=== PATIENT | male | born 1950 | race African-American/Black ===

== ENCOUNTER 2017-04-03 11:18 | Outpatient (CLI) | payer MEDICARE ==
[2017-04-03 12:26] LABS: Bilirubin Negative (Negative); Blood, Urine Negative (Negative); Clarity Clear (Clear); Glucose, Urine (Dipstick) Negative (Negative); Leukocyte Negative (Negative); Nitrite Negative (Negative); Protein, Urine (Dipstick) Negative (Neg-Trace); Specific Gravity, Urine 1.015 (1.005-1.030); pH, Urine 5.5 (5.0-9.0)
[2017-04-03 12:56] LABS: ALT (SGPT) 18 U/L (8-55); AST (SGOT) 28 U/L (5-34); Albumin 3.6 g/dL (3.4-4.8); Alkaline Phosphatase 139 U/L (40-150); Anion Gap 14 mmol/L (10-20); BUN (Urea Nitrogen) 12 mg/dL (8.4-25.7); Bilirubin, Total 0.6 mg/dL (0.2-1.2); Calc. Creatinine Clearance 0 mL/min (70-130); Calcium 8.3 mg/dL (7.8-10.44); Carbon Dioxide 26 mmol/L (23-31); Chloride 101 mmol/L (98-107); Estimated GFR-MDRD 77; Globulin 3.2 g/dL (2.4-3.5); Glucose 109 mg/dL (80-115); Protein, Total 6.8 g/dL (5.8-8.1); Sodium 137 mmol/L (136-145)
[2017-04-03 13:31] LABS: #Basophils 0.1 thou/uL (0.0-0.2); #Eosinphils 0.1 thou/uL (0.0-0.7); #Lymphocytes 1.1 thou/uL (1.20-3.40); #Monocytes 0.6 thou/uL (0.11-0.59); #Neutrophils 4.3 thou/uL (1.40-6.50); %Basophils 1.1 % (0.0-1.0); %Eosinophils 1.2 % (0.0-10.0); %Lymphocytes 17.5 % (21.0-51.0); %Monocytes 9.3 % (0.0-10.0); %Neutrophils 70.9 % (42.0-75.0); Hemoglobin 15.2 g/dL (14.0-18.0); Mean Corpuscular HGB CONC 31.9 g/dL (32.0-36.0); Mean Corpuscular Hemoglobin 27.5 pg (27.0-31.0); Mean Corpuscular Volume 86.1 fl (80.0-94.0); Mean Platelet Volume 8.3 fL (7.4-10.4); Platelet Count 108 thou/uL (130-400); RBC Distribution Width 14.1 % (11.5-14.5); Red Blood Cell (RBC) Count 5.52 mill/uL (4.70-6.10)
[2017-04-03 13:32] LABS: PLT Morphology Comment Appears Decreased
== END 2017-04-03 11:19 | disposition home or self-care (01) ==
LOC: NAVSJIPCSP 11:18
PROVIDERS: ATTEND Internal Medicine
DX: B19.20 Unspecified viral hepatitis C without hepatic coma (principal); I10 Essential (primary) hypertension
CPT/HCPCS: 36415; 80053; 81003; 85025

== ENCOUNTER 2017-06-10 09:08 | Outpatient (CLI) | payer MEDICARE ==
[2017-06-10 13:51] LABS: Anion Gap 15 mmol/L (10-20); BUN (Urea Nitrogen) 19 mg/dL (8.4-25.7); Calc. Creatinine Clearance 0 mL/min (70-130); Calcium 8.8 mg/dL (7.8-10.44); Carbon Dioxide 29 mmol/L (23-31); Chloride 102 mmol/L (98-107); Estimated GFR-MDRD 75; Glucose 93 mg/dL (80-115); Potassium 3.7 mmol/L (3.5-5.1); Sodium 142 mmol/L (136-145)
== END 2017-06-10 09:09 | disposition home or self-care (01) ==
LOC: NAVSJIPCSP 09:08
PROVIDERS: ATTEND Internal Medicine
DX: R97.20 Elevated prostate specific antigen [PSA] (principal)
CPT/HCPCS: 36415; 80048; G0103

== ENCOUNTER 2017-06-29 22:18 | Emergency (ER) | payer MEDICARE ==
[2017-06-29] MEDS ORDERED: Fentanyl 100 MCG/2 ML VIAL ONE ×2 (22:28→23:26)
[2017-06-29 22:57] LABS: #Basophils 0.1 thou/uL (0.0-0.2); #Lymphocytes 1.5 thou/uL (1.20-3.40); #Monocytes 0.5 thou/uL (0.11-0.59); #Neutrophils 3.2 thou/uL (1.40-6.50); %Basophils 1.4 % (0.0-1.0); %Eosinophils 0.9 % (0.0-10.0); %Neutrophils 59.7 % (42.0-75.0); Hemoglobin 13.4 g/dL (14.0-18.0); Mean Corpuscular HGB CONC 33.7 g/dL (32.0-36.0); Mean Corpuscular Hemoglobin 28.4 pg (27.0-31.0); Mean Corpuscular Volume 84.4 fl (80.0-94.0); Mean Platelet Volume 8.4 fL (7.4-10.4); Platelet Count 89 thou/uL (130-400); RBC Distribution Width 13.9 % (11.5-14.5); Red Blood Cell (RBC) Count 4.72 mill/uL (4.70-6.10); White Blood Cell (WBC) Count 5.3 thou/uL (4.8-10.8)
[2017-06-29 23:02] LABS: ALT (SGPT) 33 U/L (8-55); AST (SGOT) 34 U/L (5-34); Albumin 3.6 g/dL (3.4-4.8); Alkaline Phosphatase 138 U/L (40-150); Anion Gap 14 mmol/L (10-20); BUN (Urea Nitrogen) 15 mg/dL (8.4-25.7); Bilirubin, Total 0.6 mg/dL (0.2-1.2); Calc. Creatinine Clearance 0 mL/min (70-130); Calcium 8.2 mg/dL (7.8-10.44); Carbon Dioxide 23 mmol/L (23-31); Chloride 105 mmol/L (98-107); Estimated GFR-MDRD 83; Globulin 3.6 g/dL (2.4-3.5); Potassium 4.1 mmol/L (3.5-5.1); Protein, Total 7.2 g/dL (5.8-8.1); Sodium 138 mmol/L (136-145)
[2017-06-29] MEDS ORDERED: Adacel (T-DAP) 0.5 ML VIAL ONE (23:12)
[2017-06-29 23:19] LABS: Glucose 103 mg/dL (80-115)
[2017-06-29] MEDS ORDERED: Ciprofloxacin Lactate/D5W 400 mg/200 ml Premix ONE (23:25)
[2017-06-29] MEDS ORDERED: Sodium Chloride 0.9% 0 ML ONE (23:25)
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
[2017-06-30] MEDS ORDERED: Fentanyl 100 MCG/2 ML VIAL ONE (01:02)
== END 2017-06-30 01:45 | disposition short-term general hospital (02) ==
LOC: NAV ERS 22:18
DX: S92.001A Unspecified fracture of right calcaneus, initial encounter for closed fracture (principal); D69.6 Thrombocytopenia, unspecified; I10 Essential (primary) hypertension; Z79.899 Other long term (current) drug therapy; W32.0XXA Accidental handgun discharge, initial encounter
CPT/HCPCS: 36415; 80053; 85025; 90471; 90715; 96365; 96375; 96376; J0744; J3010; J7050

== ENCOUNTER 2017-10-15 09:49 | Outpatient (CLI) | payer MEDICARE, MEDICAID ==
--- NOTE | 2017-10-15 14:38 | CT ---
CT CHEST PERFORMED WITHOUT CONTRAST ENHANCEMENT: HISTORY: Followup of right basilar lung nodule. COMPARISON: CT abdomen and pelvis from 09/04/2017. FINDINGS: There are some areas of air trapping and blebs, suggesting some COPD type changes. There is a noncal cified left upper lobe pulmonary nodule that measures 4 to 5 mm. There are two areas of nodularity i n the right base, one of which is pleural-based and is slightly more posterior in location, within th e right posterior sulcus. This is a fairly ill defined area, measuring approximately 1.5 cm in size. There is a second area of nodularity, which is closer to the posterior cardiophrenic angle region, best seen on axial image 48 and coronal image 103. It measures approximately 8 mm in size. There is some interstitial change that is in between these two areas. They are not decreased in size, as com pared to the prior study. I do not appreciate any definite mediastinal or hilar adenopathy on this noncontrast exam. The splee n is noted to be enlarged. Cirrhotic appearing changes of the liver are present. IMPRESSION: 1. Chronic obstructive pulmonary disease type changes. 2. There is a 4 mm left upper lobe pulmonary nodule seen on axial image 19, which is noncalcified. There is a second pleural based nodularity along the major fissure on the left, which measures 2 to 3 mm, and probably represents a small, pleural based node. It is on axial image 37 and coronal image 74. 3. There are two areas of ill defined nodularity within the right lower lobe, as discussed above. T here is some intervening interstitial change associated with these. These are essentially stable as compared to the 09/04/2015 exam. 4. Cirrhotic changes of the liver and splenomegaly. 5. The above findings warrant followup, and I would suggest a short-term, three-month follow-up exam ination. This will investigate both the left upper lobe pulmonary nodule, as well as the ill defined areas of nodularity in the right lower lobe. If the patient has symptoms that would suggest infecti on, an antibiotic course would be suggested, as the changes in the right base could potentially be in fectious in nature. POS: [facility]
== END 2017-10-15 09:50 | disposition home or self-care (01) ==
LOC: NAV CT 09:49
PROVIDERS: ATTEND Internal Medicine
DX: R22.2 Localized swelling, mass and lump, trunk (principal); R91.8 Other nonspecific abnormal finding of lung field
CPT/HCPCS: 71250

== ENCOUNTER 2018-02-09 10:46 | Emergency (ER) | payer MEDICARE, MEDICAID ==
[2018-02-09 11:32] LABS: Bilirubin Negative (Negative); Blood, Urine Trace (Negative); Clarity Clear (Clear); Glucose, Urine (Dipstick) Negative (Negative); Leukocyte Negative (Negative); Nitrite Negative (Negative); Protein, Urine (Dipstick) Negative (Neg-Trace)
[2018-02-09 11:43] LABS: #Basophils 0.1 thou/uL (0.0-0.2); #Lymphocytes 0.8 thou/uL (1.20-3.40); #Monocytes 0.6 thou/uL (0.11-0.59); #Neutrophils 6.6 thou/uL (1.40-6.50); %Basophils 0.8 % (0.0-1.0); %Eosinophils 0.2 % (0.0-10.0); %Lymphocytes 10.1 % (21.0-51.0); %Monocytes 7.5 % (0.0-10.0); %Neutrophils 81.4 % (42.0-75.0); Hemoglobin 13.5 g/dL (14.0-18.0); Mean Corpuscular HGB CONC 32.9 g/dL (32.0-36.0); Mean Corpuscular Hemoglobin 27.3 pg (27.0-31.0); Mean Platelet Volume 9.8 fL (7.4-10.4); Platelet Count 75 thou/uL (130-400); RBC Distribution Width 12.3 % (11.5-14.5); Red Blood Cell (RBC) Count 4.93 mill/uL (4.70-6.10); White Blood Cell (WBC) Count 8.1 thou/uL (4.8-10.8)
[2018-02-09 11:49] LABS: Bacteria/HPF Rare-Few HPF (None Seen); Other Microscopic Description NO; RBC/HPF 0-3 HPF (0-3); Squamous Epithelial None Seen HPF (0-3); WBC/HPF None Seen HPF (0-3)
[2018-02-09 11:52] LABS: ALT (SGPT) 37 U/L (8-55); AST (SGOT) 41 U/L (5-34); Albumin 3.6 g/dL (3.4-4.8); Alkaline Phosphatase 118 U/L (40-150); Anion Gap 13 mmol/L (10-20); BUN (Urea Nitrogen) 16 mg/dL (8.4-25.7); Bilirubin, Total 1.2 mg/dL (0.2-1.2); Calc. Creatinine Clearance 0 mL/min (70-130); Calcium 8.5 mg/dL (7.8-10.44); Carbon Dioxide 26 mmol/L (23-31); Chloride 102 mmol/L (98-107); Estimated GFR-MDRD 79; Globulin 3.7 g/dL (2.4-3.5); Glucose 164 mg/dL (80-115); Potassium 3.7 mmol/L (3.5-5.1); Protein, Total 7.3 g/dL (5.8-8.1); Sodium 137 mmol/L (136-145)
--- NOTE | 2018-02-09 12:10 | RAD ---
PA AND LATERAL VIEWS CHEST: Date: 02/09/18 HISTORY: Fever, cough, and chills. FINDINGS: Comparison made with exam of 09/15/16. The heart size is normal. The aorta is tortuous. The lungs are well expanded without focal areas of c onsolidation, pneumothoraces, or pleural effusions. No acute osseous abnormalities are seen. IMPRESSION: No radiographic evidence of acute cardiopulmonary process. POS: [facility]
== END 2018-02-09 12:35 | disposition home or self-care (01) ==
LOC: NAV ERS 10:46
DX: R05 Cough (principal); M79.1 Myalgia; D64.9 Anemia, unspecified; I10 Essential (primary) hypertension; Z79.891 Long term (current) use of opiate analgesic; Z79.899 Other long term (current) drug therapy
CPT/HCPCS: 71046; 80053; 81003; 81015; 85025

== ENCOUNTER 2018-03-16 08:11 | Outpatient (CLI) | payer MEDICARE, MEDICAID ==
--- NOTE | 2018-03-16 11:03 | ULT ---
ULTRASOUND ABDOMEN LIMITED: (RIGHT UPPER QUADRANT) DATE: 03-16-18 HISTORY: 67-year-old male with hepatitis C virus. FINDINGS: Gallbladder: Surgically absent. Common duct: Severely dilated to 20 mm. Liver: Nodular margins. Coarse echotexture. Diffuse intrahepatic biliary ductal dilation. Pancreas: Nonspecific sonographic appearance of visualized portions. Right kidney: No hydronephrosis. IMPRESSION: 1. Cirrhosis of the liver. 2. Moderate to severe dilation of the entire biliary tree. Dilation was demonstrated on previous nonc ontrast CT of 09-04-17. Consider ERCP to rule out obstructing ampullary lesion. 3. Status post cholecystectomy. BALDEV Davila POS: [facility]
== END 2018-03-16 08:12 | disposition home or self-care (01) ==
LOC: NAV ULT 08:11
PROVIDERS: ATTEND Internal Medicine
DX: B19.20 Unspecified viral hepatitis C without hepatic coma (principal); K74.60 Unspecified cirrhosis of liver; K83.8 Other specified diseases of biliary tract; Z90.49 Acquired absence of other specified parts of digestive tract
CPT/HCPCS: 76705

== ENCOUNTER 2018-04-16 07:58 | Outpatient (CLI) | payer MEDICARE, MEDICAID ==
--- NOTE | 2018-04-16 09:58 | CT ---
CT OF THE THORAX WITHOUT IV CONTRAST: INDICATION: Fall. Pulmonary nodule. COMPARISON: Prior study dated 10/15/[address] of the chest, abdomen, and pelvis dated 06/16/14. FINDINGS: There is moderate scattered central lobular and paraseptal emphysema. There is a stable 4.7 mm pulmonary nodule left upper lobe. This has been stable since 2014 and is be nign. There are new areas of peripheral nodular airspace consolidation within the posterior medial and post erior lateral segment of the right lower lobe. There was some patchy opacity seen within the postero medial segment of the right middle lobe. There is a small calcified granuloma within the superior li ngula. No pleural effusion is evident. There is a stable 1.4 cm precarinal lymph node. There are m ild coronary artery calcifications. The spleen is enlarged measuring 6 cm. There is cirrhotic morph ology of the liver. The gallbladder is surgically absent. There are mild splenic varicosities. There is scattered degenerative and osteoarthritic change. IMPRESSION: 1. New areas of peripheral nodular airspace consolidation can be seen with bronchopneumonia. Entity such as bronchoalveolar adenocarcinoma is not entirely excluded. Would recommend short-term followu p in 6-8 weeks to document stability or resolution after appropriate therapy. 2. Benign pulmonary nodule left upper lobe measuring 4.7 mm. 3. Moderate emphysema. 4. Cirrhosis with findings of portal hypertension. POS: [facility]
== END 2018-04-16 07:59 | disposition home or self-care (01) ==
LOC: NAV CT 07:58
PROVIDERS: ATTEND Internal Medicine
DX: J43.9 Emphysema, unspecified (principal); R91.1 Solitary pulmonary nodule; K74.60 Unspecified cirrhosis of liver; K76.6 Portal hypertension
CPT/HCPCS: 71250

== ENCOUNTER 2018-05-05 12:43 | Outpatient (CLI) | payer MEDICARE, MEDICAID ==
--- NOTE | 2018-05-05 14:14 | RAD ---
TWO VIEW CHEST: HISTORY: Cough. FINDINGS: Lungs are clear. Heart and mediastinum unremarkable. IMPRESSION: No acute abnormality. POS: [facility]
== END 2018-05-05 12:44 | disposition home or self-care (01) ==
LOC: NAV RAD 12:43
PROVIDERS: ATTEND Internal Medicine
DX: R05 Cough (principal)
CPT/HCPCS: 71046

== ENCOUNTER 2018-06-02 16:53 | Emergency (ER) | payer MEDICARE, MEDICAID ==
[2018-06-02] MEDS ORDERED: methylPREDNISolone Sod Succ/PF 125 MG/2 ML VIAL ONE (17:22)
== END 2018-06-02 18:00 | disposition home or self-care (01) ==
LOC: NAV ERS 16:53
DX: T63.461A Toxic effect of venom of wasps, accidental (unintentional), initial encounter (principal); R00.1 Bradycardia, unspecified; I10 Essential (primary) hypertension; D64.9 Anemia, unspecified; G89.29 Other chronic pain; M54.2 Cervicalgia; M54.5 Low back pain; G62.9 Polyneuropathy, unspecified; Z79.899 Other long term (current) drug therapy
CPT/HCPCS: 96372; J2930

== ENCOUNTER 2019-03-30 17:16 | Emergency (ER) | payer MEDICARE, MEDICAID | END 2019-03-30 18:16 | disposition home or self-care (01) | LOC: NAV ERS 17:16 | DX: S29.012A Strain of muscle and tendon of back wall of thorax, initial encounter (principal); I10 Essential (primary) hypertension; D64.9 Anemia, unspecified; Z87.891 Personal history of nicotine dependence; Z79.899 Other long term (current) drug therapy; V43.52XA Car driver injured in collision with other type car in traffic accident, initial encounter | CPT/HCPCS: 99283 ==

== ENCOUNTER 2019-05-19 15:25 | Outpatient (CLI) | payer MEDICARE, MEDICAID ==
--- NOTE | 2019-05-19 16:08 | RAD ---
PA AND LATERAL VIEWS CHEST: HISTORY: Bronchitis, cough. FINDINGS: Comparison is made with the exam of 09/30/2018. The heart size is normal. The lungs are well expand ed without focal areas of consolidation, pneumothoraces, or pleural effusions. No acute osseous abno rmalities are seen. IMPRESSION: No radiographic evidence of acute cardiopulmonary process. POS: [facility]
== END 2019-05-19 15:26 | disposition home or self-care (01) ==
LOC: NAV RAD 15:25
PROVIDERS: ATTEND Internal Medicine
DX: J40 Bronchitis, not specified as acute or chronic (principal)
CPT/HCPCS: 71046

== ENCOUNTER 2019-07-08 16:42 | Emergency (ER) | payer MEDICARE, MEDICAID ==
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
--- NOTE | 2019-07-08 19:21 | RAD ---
LUMBAR SPINE THREE VIEWS: HISTORY: Injury. FINDINGS: There are degenerative changes in the lumbar spine with disk narrowing at L5-S1 and hypertrophic spur ring. Facet hypertrophy is seen throughout. No compression deformity. No acute fracture identified . IMPRESSION: Moderate degenerative changes of the lumbar spine. No evidence of acute compression or fractures. POS: [facility]
== END 2019-07-08 18:50 | disposition home or self-care (01) ==
LOC: NAV ERS 16:42
DX: S16.1XXA Strain of muscle, fascia and tendon at neck level, initial encounter (principal); S13.9XXA Sprain of joints and ligaments of unspecified parts of neck, initial encounter; M54.5 Low back pain; I10 Essential (primary) hypertension; Z87.891 Personal history of nicotine dependence; V43.92XA Unspecified car occupant injured in collision with other type car in traffic accident, initial encounter
CPT/HCPCS: 72100; 72125

== ENCOUNTER 2019-11-22 19:08 | Emergency (ER) | payer MEDICARE, MEDICAID | END 2019-11-22 19:35 | disposition home or self-care (01) | LOC: NAV ERS 19:08 | DX: G89.29 Other chronic pain (principal); M54.5 Low back pain; I10 Essential (primary) hypertension; D64.9 Anemia, unspecified; Z87.891 Personal history of nicotine dependence; Z79.899 Other long term (current) drug therapy; Z79.891 Long term (current) use of opiate analgesic | CPT/HCPCS: 99283 ==

== ENCOUNTER 2021-11-08 07:59 | Emergency (ER) | payer MEDICARE, MEDICAID ==
[2021-11-08] MEDS ORDERED: HYDROcodone/Acetaminophen 10/325 mg Tablet ONE (08:20)
[2021-11-08 08:51] LABS: #Eosinphils 0.1 thou/uL (0.0-0.7); #Lymphocytes 1.1 thou/uL (1.20-3.40); #Monocytes 0.3 thou/uL (0.11-0.59); #Neutrophils 3.3 thou/uL (1.40-6.50); %Basophils 0.7 % (0.0-1.0); %Eosinophils 1.3 % (0.0-10.0); %Lymphocytes 22.2 % (21.0-51.0); %Monocytes 6.3 % (0.0-10.0); %Neutrophils 69.5 % (42.0-75.0); ALT (SGPT) 20 U/L (8-55); AST (SGOT) 22 U/L (5-34); Albumin 3.7 g/dL (3.4-4.8); Alkaline Phosphatase 97 U/L (40-110); Anion Gap 10 mmol/L (10-20); BUN (Urea Nitrogen) 14 mg/dL (8.4-25.7); Bilirubin, Total 0.4 mg/dL (0.2-1.2); Calc. Creatinine Clearance 0 mL/min (70-130); Carbon Dioxide 28 mmol/L (23-31); Chloride 104 mmol/L (98-107); Globulin 3.6 g/dL (2.4-3.5); Glucose 129 mg/dL (80-115); Hemoglobin 13.6 g/dL (14.0-18.0); Mean Corpuscular HGB CONC 32.9 g/dL (32.0-36.0); Mean Corpuscular Hemoglobin 29.2 pg (27.0-31.0); Mean Corpuscular Volume 88.7 fL (78.0-98.0); Mean Platelet Volume 7.9 fL (7.4-10.4); Platelet Count 98 thou/uL (130-400); Potassium 3.8 mmol/L (3.5-5.1); Protein, Total 7.3 g/dL (5.8-8.1); RBC Distribution Width 13.5 % (11.5-14.5); Red Blood Cell (RBC) Count 4.67 mill/uL (4.70-6.10); Sodium 138 mmol/L (136-145); White Blood Cell (WBC) Count 4.8 thou/uL (4.8-10.8)
[2021-11-08 09:06] LABS: Bilirubin Negative (Negative); Blood, Urine Trace (Negative); Clarity Clear (Clear); Glucose, Urine (Dipstick) Negative (Negative); Ketone, Urine Negative (Negative); Leukocyte Negative (Negative); Nitrite Negative (Negative); Protein, Urine (Dipstick) Negative (Neg-Trace); pH, Urine 7.5 (5.0-9.0)
[2021-11-08 09:14] LABS: RBC/HPF 0-3 HPF (0-3); WBC/HPF None Seen HPF (0-3)
[2021-11-08 09:16] LABS: Squamous Epithelial 0-3 HPF (0-3)
== END 2021-11-08 10:10 | disposition home or self-care (01) ==
LOC: NAV ERS 07:59
DX: M53.3 Sacrococcygeal disorders, not elsewhere classified (principal); I10 Essential (primary) hypertension; R10.9 Unspecified abdominal pain; D64.9 Anemia, unspecified; Z87.891 Personal history of nicotine dependence; Z79.899 Other long term (current) drug therapy
CPT/HCPCS: 74176; 80053; 81003; 81015; 85025

== ENCOUNTER 2022-05-14 19:22 | Emergency (ER) | payer MEDICARE, MEDICAID | END 2022-05-14 20:02 | disposition home or self-care (01) | LOC: NAV ERS 19:22 | DX: H00.015 Hordeolum externum left lower eyelid (principal); I10 Essential (primary) hypertension; D64.9 Anemia, unspecified; H40.9 Unspecified glaucoma; Z87.891 Personal history of nicotine dependence; Z87.19 Personal history of other diseases of the digestive system | CPT/HCPCS: 99283 ==

== ENCOUNTER 2022-07-30 12:05 | Emergency (ER) | payer MEDICARE, MEDICAID ==
[~2022-07-30 12:05] MED LIST: Iopamidol 370 76% 100 ML VIAL ONE
[2022-07-30 12:58] LABS: #Basophils 0.1 thou/uL (0.0-0.2); #Eosinphils 0.1 thou/uL (0.0-0.7); #Lymphocytes 1.1 thou/uL (1.20-3.40); #Monocytes 0.4 thou/uL (0.11-0.59); #Neutrophils 3.3 thou/uL (1.40-6.50); %Basophils 1.2 % (0.0-1.0); %Eosinophils 1.2 % (0.0-10.0); %Lymphocytes 22.3 % (21.0-51.0); %Monocytes 8.4 % (0.0-10.0); %Neutrophils 66.9 % (42.0-75.0); Hemoglobin 12.6 g/dL (14.0-18.0); Mean Corpuscular HGB CONC 31.1 g/dL (32.0-36.0); Mean Corpuscular Hemoglobin 28.5 pg (27.0-31.0); Mean Corpuscular Volume 91.9 fL (78.0-98.0); Mean Platelet Volume 7.5 fL (7.4-10.4); Platelet Count 104 thou/uL (130-400); RBC Distribution Width 13.5 % (11.5-14.5); Red Blood Cell (RBC) Count 4.43 mill/uL (4.70-6.10)
[2022-07-30 13:07] LABS: ALT (SGPT) 28 U/L (8-55); AST (SGOT) 25 U/L (5-34); Albumin 3.7 g/dL (3.4-4.8); Alkaline Phosphatase 101 U/L (40-110); Anion Gap 13 mmol/L (10-20); BUN (Urea Nitrogen) 15 mg/dL (8.4-25.7); Bilirubin, Total 0.6 mg/dL (0.2-1.2); Calc. Creatinine Clearance 0 mL/min (70-130); Calcium 8.9 mg/dL (7.8-10.44); Carbon Dioxide 27 mmol/L (23-31); Chloride 105 mmol/L (98-107); Estimated GFR 91; Globulin 2.9 g/dL (2.4-3.5); Glucose 118 mg/dL (83-110); Lipase 6 U/L (8-78); Potassium 3.5 mmol/L (3.5-5.1); Protein, Total 6.6 g/dL (5.8-8.1); Sodium 141 mmol/L (136-145)
[2022-07-30 13:10] LABS: Bilirubin Negative (Negative); Blood, Urine Negative (Negative); Clarity Clear (Clear); Glucose, Urine (Dipstick) Negative (Negative); Ketone, Urine Negative (Negative); Leukocyte Negative (Negative); Nitrite Negative (Negative); Protein, Urine (Dipstick) Negative (Neg-Trace); Specific Gravity, Urine 1.025 (1.005-1.030); Urobilinogen 0.2 mg/dL (Less than 2); pH, Urine 5.5 (5.0-9.0)
[2022-07-30] MEDS ORDERED: HYDROcodone/Acetaminophen 10/325 mg Tablet ONE (14:28)
== END 2022-07-30 15:10 | disposition home or self-care (01) ==
LOC: NAV ERS 12:05
DX: M54.2 Cervicalgia (principal); G89.29 Other chronic pain; R09.89 Other specified symptoms and signs involving the circulatory and respiratory systems; R20.2 Paresthesia of skin; R91.1 Solitary pulmonary nodule; I10 Essential (primary) hypertension; Z87.891 Personal history of nicotine dependence
CPT/HCPCS: 70491; 71275; 74174; 80053; 81003; 83690; 85025; Q9967

== ENCOUNTER 2025-10-16 07:37 | Emergency (ER) | payer MEDICARE ==
[2025-10-16] MEDS ORDERED: Acetaminophen 500 MG TAB ONE (08:22)
== END 2025-10-16 08:55 | disposition home or self-care (01) ==
LOC: NAV ERS 07:37
DX: S80.01XA Contusion of right knee, initial encounter (principal); M19.90 Unspecified osteoarthritis, unspecified site; I10 Essential (primary) hypertension; Z87.891 Personal history of nicotine dependence; W01.0XXA Fall on same level from slipping, tripping and stumbling without subsequent striking against object, initial encounter; Y92.481 Parking lot as the place of occurrence of the external cause
CPT/HCPCS: 90471; 90715